=== PATIENT | male | born 1980 | race American Indian/Alaskan Native ===

== ENCOUNTER 2021-01-22 19:38 | Emergency (ER) | payer OTHER ==
[2021-01-22 19:52] VITALS: BP 137/91
--- NOTE | 2021-01-22 20:52 | Emergency Department Report ---
ED General Adult HPI - General Chief complaint: Extremity Injury, Lower Stated complaint: BILATERAL LEG PAIN/STOMACH PAIN Source: patient Mode of arrival: Ambulatory Limitations: No Limitations - History of Present Illness Initial comments: 40-year-old male status post Covid vaccination a few days ago and now reports emerge department complaining of aches and pains to his thighs arms and and leg regions. No swelling, no long car trips no numbness, no tingling, no traumatic events. No fever, chills, sweats. No chest pain, no palpitations, no nausea, no vomiting, no fever Radiation: non-radiation Quality: aching, dull Consistency: constant Improves with: none Worsens with: none, other (No palliative treatments attempted) - Related Data Allergies Allergy/AdvReac Type Severity Reaction Status Date / Time No Known Allergies Allergy Unverified 01/22/21 19:49 ED Review of Systems ROS: Stated complaint: BILATERAL LEG PAIN/STOMACH PAIN Other details as noted in HPI Comment: All other systems reviewed and negative ED Past Medical Hx - Past Medical History Previous Medical History?: No - Surgical History Past Surgical History?: No ED Physical Exam - General Limitations: No Limitations General appearance: alert, in no apparent distress - Head Head exam: Present: atraumatic, normocephalic - Eye Eye exam: Present: normal appearance, PERRL, EOMI Pupils: Present: normal accommodation - ENT ENT exam: Present: normal exam, normal orophraynx, mucous membranes moist, TM's normal bilaterally - Neck Neck exam: Present: normal inspection, full ROM - Respiratory Respiratory exam: Present: normal lung sounds bilaterally. Absent: respiratory distress, wheezes, rales, accessory muscle use, decreased breath sounds - Cardiovascular Cardiovascular Exam: Present: regular rate, normal rhythm. Absent: tachycardia, irregular rhythm, systolic murmur, diastolic murmur, rubs, gallop - GI/Abdominal GI/Abdominal exam: Present: soft, normal bowel sounds - Rectal Rectal exam: Present: deferred - Extremities Exam Extremities exam: Present: normal inspection, normal capillary refill. Absent: tenderness, pedal edema, joint swelling, calf tenderness - Back Exam Back exam: Present: normal inspection. Absent: CVA tenderness (R), CVA tenderness (L) - Neurological Exam Neurological exam: Present: alert, oriented X3, CN II-XII intact, normal gait - Psychiatric Psychiatric exam: Present: normal affect, normal mood - Skin Skin exam: Present: warm, dry, intact, normal color. Absent: rash ED Course Vital Signs 01/22/21 19:51 Temperature 98.2 F Pulse Rate 87 Respiratory 16 Rate Blood Pressure 137/91 [Right] O2 Sat by Pulse 97 Oximetry Critical care attestation.: If time is entered above; I have spent that time in minutes in the direct care of this critically ill patient, excluding procedure time. ED Disposition Clinical Impression: Myalgia after COVID-19 vaccination Disposition: HOME / SELF CARE / HOMELESS Is pt being admited?: No Does the pt Need Aspirin: No Condition: Stable Instructions: Musculoskeletal Pain Additional Instructions: As recommended status post your Covid vaccination utilize Tylenol or Motrin as needed for your general muscle aches and pains. To be sure to follow-up with your primary care provider for reevaluation of these these aches and pains any need for your follow-up Covid vaccination Referrals: [facility] [Provider Group] - 3-5 Days
== END 2021-01-22 21:05 | disposition home or self-care (01) ==
LOC: ED 19:38
DX: M79.18 Myalgia, other site (principal); T50.Z95A Adverse effect of other vaccines and biological substances, initial encounter; Y92.89 Other specified places as the place of occurrence of the external cause
CPT/HCPCS: 99282

== ENCOUNTER 2021-01-24 19:47 | Emergency (ER) | payer OTHER ==
--- NOTE | 2021-01-24 22:20 | Emergency Department Report ---
ED General Adult HPI - General Chief complaint: Extremity Injury, Lower Stated complaint: leg pain Time Seen by Provider: 01/24/21 22:09 Source: patient Mode of arrival: Ambulatory Limitations: No Limitations - History of Present Illness Initial comments: Patient 40-year-old male who presents for chest pain and bilateral lower extremity pain and swelling x1 week. [place]. States symptoms are intermittent off and on worsening for the past week. Pain is exacerbated by movement prolonged standing and walking. Patient denies suspicious travel no history of DVT no history of heart failure. Denies nausea vomiting, lightheadedness, dizziness there is been no fevers or chills. No productive cough. - Related Data Previous Rx's Medication Instructions Recorded Last Taken Type Ibuprofen [Motrin 800 MG tab] 800 mg PO Q8HR PRN #2 tablet 01/25/21 Unknown Rx Allergies Allergy/AdvReac Type Severity Reaction Status Date / Time No Known Allergies Allergy Unverified 01/22/21 19:49 ED Review of Systems ROS: Stated complaint: leg pain Other details as noted in HPI Constitutional: denies: chills, fever Eyes: as per HPI ENT: denies: ear pain, throat pain Respiratory: denies: cough, shortness of breath, wheezing Cardiovascular: chest pain. denies: palpitations, dyspnea on exertion, edema, paroxysmal nocturnal dyspnea Endocrine: no symptoms reported Gastrointestinal: denies: abdominal pain, nausea, diarrhea Genitourinary: as per HPI Musculoskeletal: other (bilat le pain ). denies: back pain, joint swelling, arthralgia Skin: denies: rash, lesions Neurological: denies: headache, weakness, paresthesias Psychiatric: anxiety. denies: depression Hematological/Lymphatic: denies: easy bleeding, easy bruising ED Past Medical Hx - Past Medical History Previous Medical History?: No - Surgical History Past Surgical History?: No - Medications Home Medications: Home Medications Medication Instructions Recorded Confirmed Last Taken Type Ibuprofen [Motrin 800 MG tab] 800 mg PO Q8HR PRN #2 tablet 01/25/21 Unknown Rx ED Physical Exam - General Limitations: No Limitations General appearance: alert, in no apparent distress - Head Head exam: Present: atraumatic, normocephalic - Eye Eye exam: Present: normal appearance, EOMI Pupils: Present: normal accommodation - ENT ENT exam: Present: mucous membranes moist - Neck Neck exam: Present: normal inspection, full ROM. Absent: tenderness - Respiratory Respiratory exam: Present: normal lung sounds bilaterally, chest wall tenderness (anterior chest wall pain to palpation, no crepitus no ecchymosis, no stepoff ). Absent: respiratory distress, wheezes, stridor - Cardiovascular Cardiovascular Exam: Present: regular rate, normal rhythm, normal heart sounds. Absent: systolic murmur, diastolic murmur, rubs, gallop - GI/Abdominal GI/Abdominal exam: Present: soft, normal bowel sounds. Absent: distended, tenderness, bruit, hernia - Rectal Rectal exam: Present: deferred - Extremities Exam Extremities exam: Present: normal inspection, full ROM, normal capillary refill, other (mild bilat foot swelling ). Absent: pedal edema, joint swelling, calf tenderness (neg homans bilat , distal pulses intact ) - Back Exam Back exam: Present: normal inspection, full ROM. Absent: CVA tenderness (R), CVA tenderness (L) - Neurological Exam Neurological exam: Present: alert, oriented X3, CN II-XII intact, normal gait - Psychiatric Psychiatric exam: Present: normal affect, normal mood - Skin Skin exam: Present: warm, dry, intact, normal color. Absent: rash ED Course Vital Signs 01/24/21 01/25/21 20:21 00:26 Temperature 98.1 F 98.5 F Pulse Rate 63 53 L Respiratory 18 18 Rate Blood Pressure 149/93 Blood Pressure 128/92 [Right] O2 Sat by Pulse 100 100 Oximetry ED Medical Decision Making - Lab Data Result diagrams: 01/24/21 22:28 01/24/21 22:28 - EKG Data -: EKG Interpreted by [facility] EKG shows normal: sinus rhythm, axis, intervals, QRS complexes, ST-T waves Rate: normal - EKG Data When compared to previous EKG there are: previous EKG unavailable Interpretation: normal EKG (NSR no ST MOMO, ) - Radiology Data Radiology results: report reviewed, image reviewed CHEST 2 VIEWS INDICATION: chest pain. COMPARISON: None. FINDINGS: Support devices: None. Heart: Within normal limits. Lungs/Pleura: No acute air space or interstitial disease. No significant pleural effusion. IMPRESSION: No acute findings. Signer Name: Collins Child MD Signed: 01/24/2021 11:44 PM Workstation Name: [id number] Transcribed By: ES Dictated By: Collins Child MD Electronically Authenticated By: Collins Child MD Signed Date/Time: 01/24/21 0917 - Medical Decision Making Heart score 0, chest x-ray normal, EKG normal sinus rhythm no ST elevated MD interpreted by ED attending. Labs are normal. Patient will be DC'd home in stable condition at this time. Patient will return to emergency department should symptoms worsen. Critical care attestation.: If time is entered above; I have spent that time in minutes in the direct care of this critically ill patient, excluding procedure time. ED Disposition Clinical Impression: Stress Disposition: 01 HOME / SELF CARE / HOMELESS Is pt being admited?: No Does the pt Need Aspirin: No Condition: Stable Instructions: Coronary Artery Disease, Male Prescriptions: Ibuprofen [Motrin 800 MG tab] 800 mg PO Q8HR PRN #2 tablet PRN Reason: pain Referrals: [facility] [Primary Care Provider] - 3-5 Days ERI LAWS MD [Staff Physician] - 3-5 Days Forms: Work/School Release Form(ED) Time of Disposition: 00:48
[2021-01-24 23:04] LABS: Basophils % (Auto) 0.6 % (0.0-1.8); Eosinophils # (Auto) 0.1 K/mm3 (0.0-0.4); Eosinophils % (Auto) 1.2 % (0.0-4.3); Lymphocytes % (Auto) 34.6 % (13.4-35.0); Mean Corpuscular HGB Conc 30 % (32-34); Mean Corpuscular Volume 71 fl (84-94); Monocytes # (Auto) 0.3 K/mm3 (0.0-0.8); Monocytes % (Auto) 5.7 % (0.0-7.3); Platelet Count 216 K/mm3 (140-440)
[2021-01-24 23:08] LABS: Hematocrit 48.6 % (35.5-45.6); Hemoglobin 14.7 gm/dl (11.8-15.2)
[2021-01-24 23:18] LABS: INR 0.95 (0.87-1.13); Partial Thromboplastin Time 28.3 Sec. (24.2-36.6)
[2021-01-24 23:36] LABS: Alanine Aminotransferase 15 units/L (7-56); Albumin 4.7 g/dL (3.9-5); BUN/Creatinine Ratio 13; Blood Urea Nitrogen 14 mg/dL (9-20); Calcium 9.5 mg/dL (8.4-10.2); Hemolysis Index 20
--- NOTE | 2021-01-24 23:48 | XRay Report ---
CHEST 2 VIEWS INDICATION: chest pain. COMPARISON: None. FINDINGS: Support devices: None. Heart: Within normal limits. Lungs/Pleura: No acute air space or interstitial disease. No significant pleural effusion. IMPRESSION: No acute findings. Signer Name: Collins Child MD Signed: 01/24/2021 11:44 PM Workstation Name: [id number]
[2021-01-25 00:59] VITALS: BP 140/90
== END 2021-01-25 00:58 | disposition home or self-care (01) ==
LOC: ED 19:47
DX: F43.9 Reaction to severe stress, unspecified (principal); R07.89 Other chest pain; M79.605 Pain in left leg; M79.604 Pain in right leg
CPT/HCPCS: 36415; 71046; 80053; 84484; 85025; 85610; 85730; 93005; 99283

== ENCOUNTER 2021-01-27 19:11 | Emergency (ER) | payer OTHER ==
[2021-01-27] MEDS ORDERED: ALUM-MAG HYDROXIDE-SIMETHICONE 200-200-20MG/5ML ORAL LIQD 30 ML PO ONE (19:44)
[2021-01-27] MEDS ORDERED: LIDOCAINE VISCOUS 2% 15 ML ORAL LIQD PO ONE (19:44)
--- NOTE | 2021-01-27 19:46 | Emergency Department Report ---
HPI - General Chief Complaint: Chest Pain Time Seen by Provider: 01/27/21 19:31 - HPI HPI: MSE 6 The patient is a 40-year-old male present with a chief complaint of chest pain. The patient states for the past 2 weeks she has had burning intermittent montez bsternal chest pain occasionally with nausea but no vomiting. Patient denies shortness of breath or diaphoresis with this pain. Patient denies pleurisy or cough. Patient states he has received his first vaccination against Covid. Patient also states for several weeks he has had intermittent pain in bilateral shins. Patient states he never had a stress test or cardiac catheterization ED Past Medical Hx - Past Medical History Previous Medical History?: No - Surgical History Past Surgical History?: No - Social History Smoking Status: Current Every Day Smoker Substance Use Type: None - Medications Home Medications: Home Medications Medication Instructions Recorded Confirmed Last Taken Type Ibuprofen [Motrin 800 MG tab] 800 mg PO Q8HR PRN #2 tablet 01/25/21 Unknown Rx Famotidine [Pepcid] 20 mg PO BID #30 tablet 01/27/21 Unknown Rx traMADoL [Ultram] 50 mg PO Q6HR PRN #10 tablet 01/27/21 Unknown Rx ED Review of Systems ROS: Stated complaint: CHEST PAIN AND LEG PAIN Other details as noted in HPI Physical Exam - Physical Exam Vital Signs: Vital Signs 01/27/21 19:22 Temperature 98.5 F Pulse Rate 86 Respiratory 18 Rate Blood Pressure 124/77 O2 Sat by Pulse 99 Oximetry ED Course Vital Signs 01/27/21 19:22 Temperature 98.5 F Pulse Rate 86 Respiratory 18 Rate Blood Pressure 124/77 O2 Sat by Pulse 99 Oximetry ED Medical Decision Making - Lab Data Result diagrams: 01/27/21 19:46 01/27/21 19:46 Laboratory Tests 01/27/21 01/27/21 01/27/21 19:46 19:46 19:46 WBC 4.0 L RBC 6.82 H Hgb 14.7 Hct 48.0 H MCV 70 L MCH 22 L MCHC 31 L RDW 17.5 H Plt Count 240 Lymph % (Auto) 37.1 H [place] % (Auto) 10.6 H Eos % (Auto) 2.1 Baso % (Auto) 0.7 Lymph # (Auto) 1.5 [place] # (Auto) 0.4 Eos # (Auto) 0.1 Baso # (Auto) 0.0 Seg Neutrophils % 49.5 Seg Neutrophils # 2.0 D-Dimer 135.00 Sodium 141 Potassium 4.4 Chloride 101.5 Carbon Dioxide 28 Anion Gap 16 BUN 17 Creatinine 1.2 Estimated GFR > 60 BUN/Creatinine Ratio 14 Glucose 108 H Calcium 10.0 Total Bilirubin 0.50 AST 18 ALT 15 Alkaline Phosphatase 72 Total Creatine Kinase 319 H CK-MB (CK-2) 2.4 CK-MB (CK-2) Rel Index 0.7 Troponin T < 0.010 Total Protein 7.7 Albumin 4.7 Albumin/Globulin Ratio 1.6 Lipase 37 - EKG Data -: EKG Interpreted by Me EKG shows normal: sinus rhythm Rate: normal (73 beats per) - EKG Data When compared to previous EKG there are: previous EKG unavailable Interpretation: other (No ischemic changes seen) - Radiology Data Radiology results: report reviewed (Chest), image reviewed (Chest x-ray) interpreted by me: Chest x-ray-no definite focal infiltrates, no pneumothorax [address] [address] XRay Report Signed Patient: JALEEL JENKINS MR#: [id number] 08 : 1980 A cct:[id number] Age/Sex: 40 / M ADM Date: 01/27/21 Loc: ED Attending Dr: Ordering Physician: ANAIS HERNANDEZ MD Date of Service: 01/27/21 Procedure(s): XR chest routine 2V Accession Number(s): [id number] cc: ANAIS HERNANDEZ MD Fluoro Time In Minutes: CHEST 2 VIEWS INDICATION / CLINICAL INFORMATION: chest pain. COMPARISON: 2 views of the chest from 01/24/2021 FINDINGS: SUPPORT DEVICES: None. HEART / MEDIASTINUM: No significant abnormality. LUNGS / PLEURA: No significant pulmonary abnormality. No significant pleural effusion. No pneumothorax. ADDITIONAL FINDINGS: No significant additional findings. IMPR ESSION: 1. No acute abnormality of the chest. Signer Name: Henok Marroquin MD Signed: 01/27/2021 9:12 PM Workstation Name: [id number] Transcribed By: [place] Dictated By: Henok Marroquin MD Electronically Authenticated By: Henok Marroquin MD Signed Date/Time: 01/27/212111 DD/ 11 TD/TT: Print - Differential Diagnosis GERD, ACS, PE, pericarditis, myalgia Critical care attestation.: If time is entered above; I have spent that time in minutes in the direct care of this critically ill patient, excluding procedure time. ED Disposition Clinical Impression: Atypical chest pain, Myalgia after COVID-19 vaccination Disposition: HOME / SELF CARE / HOMELESS Is pt being admited?: No Does the pt Need Aspirin: No Condition: Stable Instructions: Nonspecific Chest Pain, Adult Additional Instructions: Return to the emergency department should you develop worsening symptoms, inability to tolerate food or liquids, high fever or any other concerns Prescriptions: Famotidine [Pepcid] 20 mg PO BID #30 tablet traMADoL [Ultram] 50 mg PO Q6HR PRN #10 tablet PRN Reason: Pain Referrals: [facility] [Provider Group] - 3-5 Days ODETTE KING MD [Staff Physician] - 3-5 Days (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 Please follow-up with him for further evaluate) Time of Disposition: 21:48 Heart Score - HEART Score History: Slightly suspicious EKG: Normal Age: < 45 Risk factors: No known risk factors Troponin: < normal limit HEART Score: 0 - EKG Read Time Time EKG Completed: 19:25 EKG Read Time: 19:58
[2021-01-27 20:04] LABS: Basophils % (Auto) 0.7 % (0.0-1.8); Eosinophils # (Auto) 0.1 K/mm3 (0.0-0.4); Eosinophils % (Auto) 2.1 % (0.0-4.3); Lymphocytes # (Auto) 1.5 K/mm3 (1.2-5.4); Lymphocytes % (Auto) 37.1 % (13.4-35.0); Mean Corpuscular HGB Conc 31 % (32-34); Mean Corpuscular Volume 70 fl (84-94); Monocytes # (Auto) 0.4 K/mm3 (0.0-0.8); Monocytes % (Auto) 10.6 % (0.0-7.3); Platelet Count 240 K/mm3 (140-440); Red Blood Count 6.82 M/mm3 (3.65-5.03); Red Cell Distribution Width 17.5 % (13.2-15.2)
[2021-01-27 20:12] LABS: Hemoglobin 14.7 gm/dl (11.8-15.2)
[2021-01-27 20:40] LABS: Creatine Kinase MB 2.4 ng/mL (0.0-4.0)
[2021-01-27 20:43] LABS: Alanine Aminotransferase 15 units/L (7-56); Albumin 4.7 g/dL (3.9-5); BUN/Creatinine Ratio 14; Blood Urea Nitrogen 17 mg/dL (9-20); Hemolysis Index 11
--- NOTE | 2021-01-27 21:16 | XRay Report ---
CHEST 2 VIEWS INDICATION / CLINICAL INFORMATION: chest pain. COMPARISON: 2 views of the chest from 01/24/2021 FINDINGS: SUPPORT DEVICES: None. HEART / MEDIASTINUM: No significant abnormality. LUNGS / PLEURA: No significant pulmonary abnormality. No significant pleural effusion. No pneumothora x. ADDITIONAL FINDINGS: No significant additional findings. IMPRESSION: 1. No acute abnormality of the chest. Signer Name: Henok Marroquin MD Signed: 01/27/2021 9:12 PM Workstation Name: [id number]
[2021-01-27 22:01] VITALS: BP 124/87
--- NOTE | 2021-01-28 13:26 | Electrocardiograph Report ---
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
== END 2021-01-27 21:59 | disposition home or self-care (01) ==
LOC: ED 19:11
DX: R07.89 Other chest pain (principal); M79.10 Myalgia, unspecified site; F17.200 Nicotine dependence, unspecified, uncomplicated
CPT/HCPCS: 36415; 71046; 80053; 82550; 82553; 83690; 84484; 85025; 85379; 93005; 99284

== ENCOUNTER 2021-02-03 03:18 | Observation (INO) | payer OTHER ==
[2021-02-03] MEDS ORDERED: ASPIRIN 325 MG TAB PO ONE (03:54)
[2021-02-03] MEDS ORDERED: HYDROGEN PEROXIDE 118 ML SOLUTION TP ONE (04:07)
--- NOTE | 2021-02-03 04:17 | Event Note ---
ED Screening Note Date of service: 02/03/21 Time: 04:09 ED Screening Note: The patient is a 40-year-old -Portuguese male with a history of coronary artery disease and hyperlipidemia who presents to the ED with complaint of acute onset persistent diffuse chest pain that he describes as pressure and tightness intermittently for the last 2 days, worse in the last 6 hours. Patient states that he has not been able to sleep because of persistent chest pain that radiates to the left lateral neck and right arm. Patient denies dizziness, syncope, shortness of breath, nausea and vomiting, abdominal pain, back pain, fever and chills or cough. This initial assessment/diagnostic orders/clinical plan/treatment(s) is/are subject to change based on patients health status, clinical progression and re- assessment by fellow clinical providers in the ED. Further treatment and workup at subsequent clinical providers discretion. Patient/guardian urged not to elope from the ED as their condition may be serious if not clinically assessed and managed. Initial orders include: CBC, CMP, troponin, EKG, chest x-ray
--- NOTE | 2021-02-03 04:27 | XRay Report ---
XR chest routine 2V INDICATION / CLINICAL INFORMATION: Chest pain. COMPARISON: 01/27/2021 FINDINGS: SUPPORT DEVICES: None. HEART /PULMONARY VASCULATURE: No significant abnormality. LUNGS / PLEURA: No significant pulmonary or pleural abnormality. No pneumothorax. ADDITIONAL FINDINGS: No significant additional findings. IMPRESSION: 1. No acute findings. Signer Name: Bar Balderrama MD Signed: 02/03/2021 4:22 AM Workstation Name: [id number]
[2021-02-03] MEDS ORDERED: FAMOTIDINE 20 MG/2 ML INJ IV ONE (04:55)
--- NOTE | 2021-02-03 04:55 | Emergency Department Report ---
ED Chest Pain HPI - General Chief Complaint: Chest Pain Stated Complaint: chestpain Time Seen by Provider: 02/03/21 04:14 Source: patient Mode of arrival: Ambulatory Limitations: No Limitations - History of Present Illness Initial Comments: Patient is a 40-year-old male present emergency department complaint of chest pain. Patient states that his pain started on . He states that the pain woke him up from sleep around 2 AM he noted tight chest pain is in the left chest and also in the epigastric area. He states it radiates to his arms neck and back. Currently rates his pain 9 out of 10. He denies any family history of cardiac issues. In triage patient told entry writer that he has a history of coronary artery disease but I do not see evidence of this and patient cannot tell me how this was diagnosed. He has questionable history of hyperlipidemia. He notes any no associated shortness of breath no fevers chills or coughing. - Related Data Previous Rx's Medication Instructions Recorded Last Taken Type Ibuprofen [Motrin 800 MG tab] 800 mg PO Q8HR PRN #2 tablet 01/25/21 Unknown Rx Famotidine [Pepcid] 20 mg PO BID #30 tablet 01/27/21 Unknown Rx traMADoL [Ultram 50 MG tab] 50 mg PO Q6HR PRN #10 tablet 01/27/21 Unknown Rx Allergies Allergy/AdvReac Type Severity Reaction Status Date / Time No Known Allergies Allergy Unverified 01/22/21 19:49 Heart Score - HEART Score History: Slightly suspicious EKG: Non-specific Age: < 45 Risk factors: 1-2 risk factors Troponin: < normal limit HEART Score: 2 - EKG Read Time Time EKG Completed: 03:32 EKG Read Time: 03:39 ED Review of Systems ROS: Stated complaint: chestpain Other details as noted in HPI Constitutional: denies: chills, fever Eyes: denies: eye pain ENT: denies: throat pain Respiratory: denies: cough, shortness of breath, SOB with exertion Cardiovascular: chest pain. denies: dyspnea on exertion, orthopnea Endocrine: no symptoms reported Gastrointestinal: denies: abdominal pain, nausea, vomiting Genitourinary: denies: urgency, dysuria Musculoskeletal: back pain Skin: denies: rash Neurological: denies: headache, weakness Psychiatric: denies: anxiety, depression Hematological/Lymphatic: denies: easy bleeding ED Past Medical Hx - Past Medical History Previous Medical History?: Yes Hx Kidney Stones: Yes Additional medical history: CAD - Surgical History Past Surgical History?: No - Social History Smoking Status: Never Smoker Substance Use Type: None - Medications Home Medications: Home Medications Medication Instructions Recorded Confirmed Last Taken Type Ibuprofen [Motrin 800 MG tab] 800 mg PO Q8HR PRN #2 tablet 01/25/21 Unknown Rx Famotidine [Pepcid] 20 mg PO BID #30 tablet 01/27/21 Unknown Rx traMADoL [Ultram 50 MG tab] 50 mg PO Q6HR PRN #10 tablet 01/27/21 Unknown Rx ED Physical Exam - General Limitations: No Limitations General appearance: alert, in no apparent distress - Head Head exam: Present: atraumatic, normocephalic - Eye Eye exam: Present: normal appearance - ENT ENT exam: Present: mucous membranes moist - Neck Neck exam: Present: normal inspection - Respiratory Respiratory exam: Present: normal lung sounds bilaterally. Absent: respiratory distress - Cardiovascular Cardiovascular Exam: Present: normal rhythm, bradycardia. Absent: systolic murmur, diastolic murmur, rubs, gallop - GI/Abdominal GI/Abdominal exam: Present: soft, normal bowel sounds - Rectal Rectal exam: Present: deferred - Extremities Exam Extremities exam: Present: normal inspection - Back Exam Back exam: Present: normal inspection - Neurological Exam Neurological exam: Present: alert, oriented X3 - Psychiatric Psychiatric exam: Present: normal affect, normal mood - Skin Skin exam: Present: warm, dry, intact ED Course Vital Signs 02/03/21 02/03/21 02/03/21 03:23 05:22 05:23 Temperature 98.6 F Pulse Rate 51 L 57 L 50 L Respiratory 18 16 Rate Blood Pressure 124/85 135/87 O2 Sat by Pulse 100 100 100 Oximetry 02/03/21 02/03/21 02/03/21 05:40 05:50 06:00 Temperature Pulse Rate 55 L 52 L 56 L Respiratory 13 17 12 Rate Blood Pressure 130/87 128/84 123/87 O2 Sat by Pulse 97 99 100 Oximetry 02/03/21 02/03/21 02/03/21 06:10 06:20 06:30 Temperature Pulse Rate 53 L 57 L 44 L Respiratory 14 15 13 Rate Blood Pressure 123/87 127/86 124/84 O2 Sat by Pulse 100 99 100 Oximetry 02/03/21 02/03/21 02/03/21 06:40 06:50 07:00 Temperature Pulse Rate 44 L 44 L 45 L Respiratory 13 11 L 13 Rate Blood Pressure 124/84 115/84 123/81 O2 Sat by Pulse 99 100 99 Oximetry 02/03/21 02/03/21 02/03/21 07:10 07:20 07:30 Temperature Pulse Rate 45 L 56 L Respiratory 14 12 9 L Rate Blood Pressure 123/81 123/81 123/81 O2 Sat by Pulse 98 100 100 Oximetry 02/03/21 02/03/21 02/03/21 07:40 07:50 08:00 Temperature Pulse Rate 43 L 43 L 69 Respiratory 14 15 12 Rate Blood Pressure 123/81 133/87 133/91 O2 Sat by Pulse 100 100 100 Oximetry 02/03/21 02/03/21 02/03/21 09:10 10:03 10:04 Temperature Pulse Rate Respiratory Rate Blood Pressure 137/88 135/93 126/93 O2 Sat by Pulse Oximetry 02/03/21 02/03/21 10:06 10:07 Temperature Pulse Rate Respiratory Rate Blood Pressure 132/85 140/82 O2 Sat by Pulse Oximetry ED Medical Decision Making - Lab Data Result diagrams: 02/03/21 03:55 02/03/21 08:51 - EKG Data -: EKG Interpreted by Me Rate: bradycardia - EKG Data Interpretation: other 02/03/21 05:38 anterolateral elevations; likely normal early repol - Radiology Data Radiology results: report reviewed - Medical Decision Making This is a 40-year-old male here with complaint of chest pain. Patient complains of chest pain tightness Elavil for sleep and rates his pain 9 out of 10. Patient has questionable history of hyperlipidemia but I do not see any evidence of history of coronary artery disease and previous documentation. Patient cannot tell me how he received diagnosis of coronary disease. Patient's initial troponin is negative initial EKG shows likely new ST elevation secondary to early repol however somewhat different from previous EKGs. Patient is pending repeat troponin and reassessment/trauma need for admission for chest pain. Critical care attestation.: If time is entered above; I have spent that time in minutes in the direct care of this critically ill patient, excluding procedure time. ED Disposition Clinical Impression: Chest pain Disposition: ADMITTED INPATIENT Is pt being admited?: Yes Does the pt Need Aspirin: Yes Condition: Stable Time of Disposition: 07:00
[2021-02-03 05:07] LABS: Basophils % (Auto) 0.4 % (0.0-1.8); Eosinophils # (Auto) 0.1 K/mm3 (0.0-0.4); Eosinophils % (Auto) 2.6 % (0.0-4.3); Hematocrit 45.1 % (35.5-45.6); Hemoglobin 14.1 gm/dl (11.8-15.2); Lymphocytes # (Auto) 2.1 K/mm3 (1.2-5.4); Lymphocytes % (Auto) 48.2 % (13.4-35.0); Mean Corpuscular HGB Conc 31 % (32-34); Monocytes # (Auto) 0.3 K/mm3 (0.0-0.8); Platelet Count 221 K/mm3 (140-440); Red Blood Count 6.52 M/mm3 (3.65-5.03); Red Cell Distribution Width 16.9 % (13.2-15.2)
[2021-02-03 05:09] LABS: Mean Corpuscular Volume 69 fl (84-94)
[2021-02-03 05:12] LABS: Alanine Aminotransferase 15 units/L (7-56); Albumin 4.6 g/dL (3.9-5); BUN/Creatinine Ratio 11; Blood Urea Nitrogen 12 mg/dL (9-20); Calcium 9.7 mg/dL (8.4-10.2); Hemolysis Index 3
[2021-02-03] MEDS ORDERED: ACETAMINOPHEN 500 MG TAB PO ONE (05:24)
[2021-02-03] MEDS ORDERED: ACETAMINOPHEN 325 MG TAB PO PRN ×2 (07:48→09:00)
[2021-02-03] MEDS ORDERED: REGADENOSON 0.4 MG/5 ML INJ IV ONE (08:22)
--- NOTE | 2021-02-03 08:41 | Short Stay Summary ---
Short Stay Documentation Date of service: 02/03/21 Narrative H&P: 40-year-old male with past medical history of hyperlipidemia who presents to emergency department complaint of chest pain. Patient states that his pain started on . He states that the pain woke him up from sleep around 2 AM he noted tight chest pain is in the left chest and also in the epigastric area. He states it radiates to his arms neck and back. Currently rates his pain 9 out of 10. He denies any family history of cardiac issues. The patient had previous ED visit on 01/24 with complaint of bilateral lower extremity pain. Patient had another ED visit on 01/27 with complaints of chest pain and was discharged home from the ED. Patient denies any fever chills. No cough cold- like symptoms. - History Past Medical History: hyperlipidemia Past Surgical History: No surgical history Social history: no significant social history - Allergies and Medications Current Medications: Allergies No Known Allergies Allergy (Unverified 01/22/21 19:49) Home Medications Medication Instructions Recorded Confirmed Last Taken Type Ibuprofen [Motrin 800 MG tab] 800 mg PO Q8HR PRN #2 tablet 01/25/21 Unknown Rx Famotidine [Pepcid] 20 mg PO BID #30 tablet 01/27/21 Unknown Rx traMADoL [Ultram] 50 mg PO Q6HR PRN #10 tablet 01/27/21 Unknown Rx Active Medications Acetaminophen (Acetaminophen 325 Mg Tab) 650 mg PO Q4H PRN PRN Reason: Pain MILD(1-3)/Fever >100.5/THORNE Acetaminophen (Acetaminophen 325 Mg Tab) 650 mg PO Q6H PRN PRN Reason: Pain, Mild (1-3) Morphine Sulfate (Morphine 4 Mg/1 Ml Inj) 2 mg IV Q6HR HIRA Ondansetron HCl (Ondansetron 4 Mg/2 Ml Inj) 4 mg IV Q8H PRN PRN Reason: Nausea And Vomiting Sodium Chloride (Sodium Chloride 0.9% 10 Ml Flush Syringe) 10 ml IV BID HIRA Sodium Chloride (Sodium Chloride 0.9% 10 Ml Flush Syringe) 10 ml IV PRN PRN PRN Reason: LINE FLUSH Sodium Chloride (Sodium Chloride 0.9% 10 Ml Flush Syringe) 10 ml IV PRN PRN PRN Reason: LINE FLUSH Tramadol HCl (Tramadol 50 Mg Tab) 50 mg PO Q6H PRN PRN Reason: Pain, Moderate (4-6) - Physical exam General appearance: no acute distress Integumentary: no rash, no growths, no abnormal pigmentation HEENT: Atraumatic, PERRLA, EOMI Breasts: deferred Heart: Regular rate, Normal S1, Normal S2, No murmurs Gastrointestinal: normal, normoactive bowel sounds Male Genitourinary: deferred Rectal Exam: deferred Extremities: no ischemia, No edema Neurological: Normal gait, Normal speech, Cranial nerves 3-12 NL - Hospital course Hospital course: The patient had cardiac isoenzymes that were found to be negative. EKG within normal limits with no ST-T wave changes. D-dimer negative suggestive of no PE. The patient is to undergo stress test and if found to be negative will be discharged home. Dedicated discharge time 32 minutes - Disposition Condition at discharge: Stable - Discharge Diagnoses (1) GERD (gastroesophageal reflux disease) Status: Acute (2) Atypical chest pain Status: Acute Short Stay Discharge Plan Activity: advance as tolerated Weight Bearing Status: Weight Bear as Tolerated Diet: regular Follow up with: PRIMARY CARE, [Primary Care Provider] - 3-5 Days
[2021-02-03] MEDS ORDERED: traMADol 50 MG TAB PO PRN (09:00)
[2021-02-03] MEDS ORDERED: ONDANSETRON 4 MG/2 ML INJ IV PRN (09:00)
[2021-02-03 09:12] LABS: BUN/Creatinine Ratio 12; Blood Urea Nitrogen 11 mg/dL (9-20); Calcium 8.8 mg/dL (8.4-10.2); Hemolysis Index 7
[2021-02-03 09:32] LABS: BUN/Creatinine Ratio 12; Blood Urea Nitrogen 11 mg/dL (9-20); Calcium 8.8 mg/dL (8.4-10.2)
--- NOTE | 2021-02-03 11:43 | Event Note ---
Full consult dictated. Discussed with Dr. Hill.
[2021-02-03] MEDS ORDERED: MORPHINE 4 MG/1 ML INJ IV SCH (12:00)
[2021-02-03] MEDS ORDERED: MORPHINE 4 MG/1 ML INJ IV PRN (12:00)
--- NOTE | 2021-02-03 14:09 | Treadmill Report ---
DATE OF SERVICE: 02/03/2021 REFERRING PHYSICIAN: Hospitalist service. PROTOCOL: The patient was assessed to the exercise stress test in a postoperative state and underwent rest nuclear imaging, underwent treadmill stress test per standard Solomon protocol. Resting blood pressure was 140/89, peak blood pressure was 170/80, peak heart rate of 160, target heart rate of 154. The patient exercised for a total of 9 minutes and 43 seconds on a Solomon protocol to achieve 9.2 METs. There were no ST changes, arrhythmias, or chest pain noted during stress or recovery. This is a normal stress test. CONCLUSIONS: 1. Normal exercise stress test without evidence of diagnostic ST changes, arrhythmias, or chest pain during stress or recovery. 2. Appropriate heart rate/blood pressure response in recovery. 3. Average exercise tolerance. 4. Nuclear imaging to follow. TID: [id number] RECEIPT: [id number] JAZZY/POLLY/SONA
--- NOTE | 2021-02-03 15:10 | Treadmill Report ---
DATE OF SERVICE: 02/03/2021 NUCLEAR PERFUSION SCAN REFERRING PHYSICIAN: Hospitalist service. DESCRIPTION OF PROCEDURE PROTOCOL: The patient was assessed in postoperative state, given 10 mCi of technetium at rest. The patient had rest imaging. The patient exercised on a standard treadmill Solomon protocol. At peak stress, the patient given 26 mCi of technetium. Shortly thereafter, the patient underwent stress imaging. The patient's imaging was reviewed carefully in horizontal long axis, vertical long axis, short axis views. There was normal homogeneous uptake of radioisotope in all port segments. No evidence of a significant fixed or reversible perfusion defect suggestive of prior infarction or ischemia. Gated wall motion reveals normal systolic thickening, calculated ejection fraction 70%. No TID. CONCLUSIONS: 1. Normal myocardial perfusion scan without evidence of active ischemia or prior infarction. 2. Normal left ventricular systolic performance without evidence of transient ischemic dilatation or stress induced segmental wall motion abnormalities. 3. Treadmill stress test reported separately. TID: [id number] RECEIPT: [id number] JAZZY/DRU
--- NOTE | 2021-02-03 15:13 | Consultation ---
DATE OF CONSULTATION: 02/03/2021 HISTORY OF PRESENT ILLNESS: The patient is a pleasant 40-year-old gentleman who presents to the Emergency Room with chest pain. He states that chest pain started yesterday, woke him up from his sleep, epigastric area. On arrival, he rates his pain as 9/10. He states that he has a history of coronary artery disease, but it is unclear that he truly has coronary artery disease. He is unable to substantiate this history. MEDICATIONS: Inpatient and outpatient medications reviewed. ALLERGIES: No known drug, food or environmental allergies. I have seen the patient in the stress lab. His D-dimer is negative. Troponins are negative x 3. He denies any chest pain, feels great. He had some left flank pain, which was sharp. This is resolved. 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 Nonsmoker, nondrinker. FAMILY HISTORY: No family history of premature heart disease. REVIEW OF SYSTEMS: Currently, denies any chest pain, shortness of breath, syncope, presyncope. No skin rashes. No hematochezia, melena, or hemoptysis. No blurred vision or headache. DIAGNOSTIC DATA: EKG is unremarkable. Troponins are negative x 3. ASSESSMENT AND PLAN: The patient is a pleasant 40-year-old gentleman with atypical chest pain, brought to the Emergency Room. He is currently troponin negative x 3, scheduled for a stress test. Further plans contingent on these results. Thank you for the consultation. We will be happy to follow along with you. TID: [id number] RECEIPT: [id number] JAZZY/STACIE
[2021-02-03 16:10] VITALS: BP 116/81
== END 2021-02-03 17:15 | disposition home or self-care (01) ==
LOC: ED 03:18 → 4A 07:38
PROVIDERS: ADMIT Hospitalist; ATTEND Hospitalist
DX: R07.89 Other chest pain (principal); K21.9 Gastro-esophageal reflux disease without esophagitis; E78.5 Hyperlipidemia, unspecified; I25.10 Atherosclerotic heart disease of native coronary artery without angina pectoris; Z87.442 Personal history of urinary calculi
CPT/HCPCS: 36415; 71046; 78452; 80053; 84484; 85025; 85379; 93005; 93017; 96374; 99285; A9502; G0378; J3490; 80048; J2785

== ENCOUNTER 2021-10-04 14:18 | Emergency (ER) | payer OTHER ==
--- NOTE | 2021-10-04 17:47 | Event Note ---
ED Screening Note ED Screening Note: 41-year-old male presents to the ED complaining of chest tightness x1 day. He denies any shortness of breath at present time. No acute distress noted no ill appearance noted. This initial assessment/diagnostic orders/clinical plan/treatment(s) is/are subject to change based on patients health status, clinical progression and re- assessment by fellow clinical providers in the ED. Further treatment and workup at subsequent clinical providers discretion. Patient/guardian urged not to elope from the ED as their condition may be serious if not clinically assessed and managed. Initial orders include:
[2021-10-04 18:27] VITALS: BP 128/85
[2021-10-04] MEDS ORDERED: MORPHINE 4 MG/1 ML INJ IV ONE (18:52)
--- NOTE | 2021-10-04 19:07 | XRay Report ---
CHEST 2 VIEWS INDICATION: Chest Pain. COMPARISON: 02/03/2021 FINDINGS: SUPPORT DEVICES: None. HEART: Within normal limits. LUNGS/PLEURA: No acute air space or interstitial disease. No pneumothorax. ADDITIONAL FINDINGS: None. IMPRESSION: 1. No acute findings. Signer Name: Arnaldo Hu MD Signed: 10/04/2021 7:02 PM Workstation Name: [id number]
[2021-10-04 19:44] LABS: Alanine Aminotransferase 18 units/L (7-56); Albumin 4.5 g/dL (3.9-5); BUN/Creatinine Ratio 9; Blood Urea Nitrogen 10 mg/dL (9-20); Calcium 9.2 mg/dL (8.4-10.2); Hemolysis Index 6
[2021-10-04 19:46] LABS: Bilirubin,Direct < 0.2 mg/dL (0-0.2)
[2021-10-04] MEDS ORDERED: ALUM-MAG HYDROXIDE-SIMETHICONE 200-200-20MG/5ML ORAL LIQD 30 ML PO ONE (19:47)
[2021-10-04] MEDS ORDERED: LIDOCAINE VISCOUS 2% 15 ML ORAL LIQD PO ONE (19:47)
--- NOTE | 2021-10-04 19:59 | Emergency Department Report ---
ED Abdominal Pain HPI - General Chief Complaint: Neck Pain/Injury Stated Complaint: HEART BURN/CHEST PAIN Time Seen by Provider: 10/04/21 18:09 Source: patient Mode of arrival: Ambulatory Limitations: No Limitations - History of Present Illness Initial Comments: Patient is a 41-year-old male presenting to ED with complaint of epigastric burning radiating up into his chest. States it feels like heartburn. He denies any past medical history. Symptoms been present for 1 day. Severity scale (0 -10): 9 - Related Data Previous Rx's Medication Instructions Recorded Last Taken Type Ibuprofen [Motrin 800 MG tab] 800 mg PO Q8HR PRN #2 tablet 01/25/21 Unknown Rx Famotidine [Pepcid] 20 mg PO BID #30 tablet 01/27/21 Unknown Rx traMADoL [Ultram 50 MG tab] 50 mg PO Q6HR PRN #10 tablet 01/27/21 Unknown Rx Famotidine [Pepcid] 20 mg PO BID #60 tablet 10/04/21 Unknown Rx Allergies Allergy/AdvReac Type Severity Reaction Status Date / Time No Known Allergies Allergy Verified 10/04/21 14:40 ED Review of Systems ROS: Stated complaint: HEART BURN/CHEST PAIN Other details as noted in HPI Constitutional: denies: chills, fever Respiratory: denies: cough, shortness of breath, wheezing Cardiovascular: denies: chest pain, palpitations Gastrointestinal: abdominal pain. denies: nausea, diarrhea Genitourinary: denies: urgency, dysuria Musculoskeletal: denies: back pain, joint swelling, arthralgia Skin: denies: rash, lesions Neurological: denies: headache, weakness, paresthesias Psychiatric: denies: anxiety, depression ED Past Medical Hx - Past Medical History Hx Kidney Stones: Yes Additional medical history: CAD - Surgical History Past Surgical History?: No - Social History Smoking Status: Never Smoker Substance Use Type: None - Medications Home Medications: Home Medications Medication Instructions Recorded Confirmed Last Taken Type Ibuprofen [Motrin 800 MG tab] 800 mg PO Q8HR PRN #2 tablet 01/25/21 Unknown Rx Famotidine [Pepcid] 20 mg PO BID #30 tablet 01/27/21 Unknown Rx traMADoL [Ultram 50 MG tab] 50 mg PO Q6HR PRN #10 tablet 01/27/21 Unknown Rx Famotidine [Pepcid] 20 mg PO BID #60 tablet 10/04/21 Unknown Rx ED Physical Exam - General Limitations: No Limitations General appearance: alert, in no apparent distress - Neck Neck exam: Present: normal inspection - Respiratory Respiratory exam: Present: normal lung sounds bilaterally. Absent: respiratory distress - Cardiovascular Cardiovascular Exam: Present: regular rate, normal rhythm, normal heart sounds - GI/Abdominal GI/Abdominal exam: Present: soft. Absent: distended, tenderness - Rectal Rectal exam: Present: deferred - Neurological Exam Neurological exam: Present: alert, oriented X3 - Psychiatric Psychiatric exam: Present: normal affect, normal mood - Skin Skin exam: Present: warm, dry, intact, normal color ED Course Vital Signs 10/04/21 10/04/21 10/04/21 14:32 18:19 18:26 Temperature 98.8 F 98.8 F Pulse Rate 69 55 L Respiratory 18 16 20 Rate Blood Pressure 124/78 128/85 [Left] O2 Sat by Pulse 100 98 100 Oximetry ED Medical Decision Making - Lab Data Result diagrams: 10/04/21 19:00 - EKG Data -: EKG Interpreted by Ne EKG shows normal: sinus rhythm Rate: normal - EKG Data Interpretation: other (Early repolarization) - Medical Decision Making No acute ischemic findings on EKG. Early repolarization present. Chemistry and troponin are unremarkable. Patient given GI cocktail with improvement of symptoms. Likely GERD. Will discharge home with Rx for Pepcid. Critical care attestation.: If time is entered above; I have spent that time in minutes in the direct care of this critically ill patient, excluding procedure time. ED Disposition Clinical Impression: GERD (gastroesophageal reflux disease) Disposition: 01 HOME / SELF CARE / HOMELESS Is pt being admited?: No Does the pt Need Aspirin: No Condition: Stable Instructions: Indigestion, Ipty-pg-Hnia Additional Instructions: Please follow-up with your regular doctor as needed. You may return if your symptoms worsen. Referrals: PRIMARY CARE,MD [Primary Care Provider] - 3-5 Days
[2021-10-04 20:00] LABS: Mean Corpuscular HGB Conc 31 % (32-34); Mean Corpuscular Volume 71 fl (84-94); Platelet Count 190 K/mm3 (140-440); Red Blood Count 6.39 M/mm3 (3.65-5.03); Red Cell Distribution Width 18.1 % (13.2-15.2)
[2021-10-04 20:01] LABS: Hematocrit 45.4 % (35.5-45.6)
[2021-10-04 21:07] LABS: Basophils % (Manual) 0 % (0.0-1.8); Monocytes % (Manual) 0 % (0.0-7.3); Platelet Estimate Consistent w Auto; Total Cells Counted 100
[2021-10-04 21:08] LABS: Hypochromasia 2+; Tear Drop Cells 1+
--- NOTE | 2021-10-06 11:15 | Electrocardiograph Report ---
[facility] Test Date: 2021-10-04 Test Time: 17:48:41 Pat Name: JALEEL JENKINS Department: Room: Gender: M Mail Carrier: TECH : 1980 Requested By: DOROTEO BENJAMIN Order Number: [id number] Reading MD: Moise Quigley Measurements Intervals [place] Rate: 54 P: 28 MA: 195 QRS: -11 QRSD: 92 T: 10 QT: 401 QTc: 380 Interpretive Statements Sinus rhythm ST elev, probable normal early repol pattern Electronically Signed On 10-06-2021 11:15:23 EDT by Moise Quigley
== END 2021-10-04 20:59 | disposition home or self-care (01) ==
LOC: ED 14:18
DX: K21.9 Gastro-esophageal reflux disease without esophagitis (principal)
CPT/HCPCS: 36415; 71046; 80048; 80076; 84484; 85007; 85025; 93005; 99284